=== PATIENT | female | born 1955 | race Caucasian/White ===

== ENCOUNTER → 2017-01-17 | Outpatient (CLI) | payer BC ==
--- NOTE | 2017-01-17 11:37 | US ---
EXAMINATION TYPE: US abdomen complete DATE OF EXAM: 01/17/2017 10:52 AM COMPARISON: NONE CLINICAL HISTORY: R10.13 Epigastric Painradiating to back x 1 month, Nausea/Vomiting. EXAM MEASUREMENTS: Liver Length: 14.6 cm Gallbladder Wall: 0.2 cm CBD: 0.3 cm Spleen: 9.5 cm Right Kidney: 11.5 x4.2 x 3.8 cm Left Kidney: 10.5 x 5.4 x 5.3 cm TECHNOLOGIST IMPRESSION: Pancreas: Obscured by bowel gas Liver: Obscured by overlying bowel gas. Visualized portions wnl Gallbladder: wnl Evidence for sonographic Dinero's sign: no CBD: wnl Spleen: wnl Right Kidney: wnl Left Kidney: wnl Upper IVC: wnl Abd Aorta: wnl The visualized liver is heterogeneous. Portions of liver are obscured by shadowing from bowel gas an d ribs. The intrahepatic portion of the IVC and visualized abdominal aorta are within normal limits. There is no evidence of cholelithiasis. Common bile duct is unremarkable. Pancreas is obscured by o verlying bowel gas on images saved. The visualized spleen is unremarkable though portions are secure d by overlying shadowing from ribs. Kidneys are symmetric and free of hydronephrosis. No renal lesi ons are seen. IMPRESSION: Suboptimal study without significant acute finding seen to account for patient's symptom s.
== END | disposition home or self-care (01) ==
LOC: RADUSWWP 10:15
PROVIDERS: ATTEND Family Medicine
DX: R10.13 Epigastric pain (principal)
CPT/HCPCS: 76700

== ENCOUNTER → 2018-12-04 | Outpatient (CLI) | payer BC ==
--- NOTE | 2018-12-05 07:16 | US ---
EXAMINATION TYPE: US kidneys/renal and bladder DATE OF EXAM: 12/04/2018 COMPARISON: US CLINICAL HISTORY: R10.9 Right Flank Pain. History of renal stones EXAM MEASUREMENTS: Right Kidney: 10.1 x 4.0 x 4.3 cm Left Kidney: 10.4 x 5.5 x 5.6 cm Right Kidney: 0.5 x 0.4 cm echogenic focus, probable stone, no discrete shadowing. No hydronephrosis. Left Kidney: No hydronephrosis or masses seen Bladder: wnl Bilateral Jets seen: Yes There is no evidence for hydronephrosis at this point in time. No nephrolithiasis is seen on the lef t. No masses are identified. The urinary bladder is anechoic. Bilateral ureteral jets are seen. IMPRESSION: Solitary nonobstructing probable 5 mm right renal calculus. No hydronephrosis or left-sided renal miladys culus.
== END | disposition home or self-care (01) ==
LOC: RADUSWWP 16:02
PROVIDERS: ATTEND Family Medicine
DX: R10.9 Unspecified abdominal pain (principal)
CPT/HCPCS: 76770

== ENCOUNTER → 2019-05-12 | Outpatient (CLI) | payer BC, MEDICARE ==
[2019-05-12 10:12] VITALS: BP 115/79; PULSE 92; RESP 16; TEMP 98.3; BMI 26.1
--- NOTE | 2019-05-12 11:00 | P.HPOB ---
History of Present Illness H&P Date: 05/12/19 Chief Complaint: The patient is here for her routine gynecologic exam. This is a 63-year-old with an LMP of 1989. The patient is here to establish with this office. She is status post SHARRI BSO for uterine fibroids. The patient states she has noticed some bladder issues that have become worse over the past 6 months. She states she avoids about 4 to 5 times per day, but at times will develop urinary urgency that can lead to leakage if she does not get to the bathroom in time. She gets up to avoid about 2 times per night. Her last pelvic exam was about 15 years ago. Review of Systems The patient's weight has been stable over the last year. She denies respiratory, cardiac, or G.I. problems. Past Medical History Past Medical History: Diabetes Mellitus, Hyperlipidemia Additional Past Medical History / Comment(s): Type II diabetes, kidney stone. 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 She used ERT for 2 years after her hysterectomy for fibroids. History of Any Multi-Drug Resistant Organisms: None Reported Past Surgical History: Bariatric Surgery Additional Past Surgical History / Comment(s): Lap band surgery 2005. SHARRI BSO 1989. Past Psychological History: No Psychological Hx Reported Smoking Status: Former smoker Additional History: Quit smoking in the . She's been since 1975. 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 - Past Family History Mother Family Medical History: Congestive Heart Failure (CHF), Diabetes Mellitus Brother(s) Family Medical History: Diabetes Mellitus Medications and Allergies Home Medications Medication Instructions Recorded Confirmed Type Atorvastatin [Lipitor] 40 mg PO DAILY 05/12/19 05/12/19 History Glimepiride [Amaryl] 1 mg PO DAILY 05/12/19 05/12/19 History Hydrochlorothiazide [Hydrodiuril] 25 mg PO DAILY 05/12/19 05/12/19 History Lisinopril [Zestril] 2.5 mg PO DAILY 05/12/19 05/12/19 History metFORMIN HCL 1,000 mg PO BID 05/12/19 05/12/19 History Allergies Allergy/AdvReac Type Severity Reaction Status Date / Time No Known Allergies Allergy Unverified 05/12/19 09:53 Exam Vital Signs Temp Pulse Resp BP Pulse Ox 05/12/19 10:08 98.3 F 92 16 115/79 96 Intake and Output 05/11/19 05/12/19 05/12/19 22:59 06:59 14:59 Other: Weight 78.018 kg Height 5'8", weight 172 pounds, BMI 26.2. This is a well-developed well-nourished white female who is alert and oriented times 3 in no acute distress. HEENT: Within normal limits. NECK: Supple without mass or thyromegaly. CHEST AND LUNGS: Clear to auscultation. HEART: Regular rate and rhythm. BREASTS: Are without mass or discharge. AXILLARY EXAM: Negative for adenopathy. BACK: Negative for CVA tenderness. ABDOMEN: Soft, nontender, without palpable masses. PELVIC EXAM: External genitalia appears normal with mild atrophy. Vagina appears normal is mild atrophy. There is no evidence of prolapse. There is minimal urethral mobility with cough and Valsalva. No urinary leakage was demonstrated. Bimanual examination is negative for mass or tenderness. RECTAL EXAM: Rectovaginal exam is negative for mass or tenderness and is negative for occult blood. There is good sphincter tone. EXTREMITIES: Nontender. IMPRESSION: 1. 63-year-old menopausal female status post SHARRI BSO for benign reasons, with normal gynecologic exam. 2. Mild urge incontinence without any significant physical findings at this time. PLAN: 1. Pap smears have been discontinued. 2. Self breast awareness was discussed with the patient. 3. Screening mammogram is scheduled for 06/04/2019 per the patient. The orders that was given to the patient for this. 4. I have recommended regular Kegal exercises and timed voids. These were discussed in detail with the patient. If she continues to have problems with urge incontinence, she was instructed to call and we can consider medication for this. 5. Osteoporosis prevention was discussed. I have stressed the importance of adequate calcium, vitamin D and regular exercise. Recommended amounts of calcium and vitamin D were also discussed. The patient states she had a normal bone density test done in 2018 at [facility]. We will plan repeating this after 5 years. 6. She will return in one to 2 years for her well woman examination.
== END | disposition home or self-care (01) ==
LOC: WWCWWP 09:39
PROVIDERS: ATTEND Obstetrics & Gynecology
DX: Z53.9 Procedure and treatment not carried out, unspecified reason (principal)

== ENCOUNTER → 2019-06-04 | Outpatient (CLI) | payer BC, MEDICARE ==
--- NOTE | 2019-06-09 13:57 | MM ---
Reason for exam: screening (asymptomatic). Last mammogram was performed 1 year and 4 months ago. History: Patient is postmenopausal. Family history of breast cancer in aunt at age 47 and breast cancer in maternal aunt. Took hormonal contraceptives for 3 years. Took estrogen for 5 years. Took progesterone for 5 years. Physical Findings: A clinical breast exam by your physician is recommended on an annual basis and results should be correlated with mammographic findings. MG 3D Screening Mammo W/Cad Bilateral CC and MLO view(s) were taken. Prior study comparison: January 21, 2018, mammogram, performed at [facility]. February 28, 2015, bilateral MG screening mammo w CAD. May 19, 2013, bilateral digital screening mammo w/CAD. There are scattered fibroglandular densities. There are four right superior breast posterior depth rounded calcifications. These do not meet criteria for a true group at this time. No suspicious abnormality. ASSESSMENT: Benign, BI-RAD 2 RECOMMENDATION: Routine screening mammogram of both breasts in 1 year.
== END ==
LOC: RADMAMWWP 07:07
PROVIDERS: ATTEND Obstetrics & Gynecology
DX: Z12.31 Encounter for screening mammogram for malignant neoplasm of breast (principal)
CPT/HCPCS: 77063; 77067

== ENCOUNTER 2019-07-22 06:43 | Day surgery (SDC) | payer MEDICARE ==
[~2019-07-22 06:43] MED LIST: LACTATED RINGERS 1,000 ML IV SCH; LIDOCAINE 1% 20 ML VIAL (10MG/ML) FOR IV START INTRADERMA PRN
[2019-07-22 07:27] LABS: Glucose,Whole Blood 121 mg/dL (75-99)
[2019-07-22 07:30] VITALS: RESP 16; TEMP 97.6
[2019-07-22] MEDS ORDERED: PROPOFOL 10 MG/ML 20 ML VIAL IV ONE (08:06)
--- NOTE | 2019-07-22 08:09 | P.GSHP ---
History of Present Illness H&P Date: 07/22/19 CHIEF COMPLAINT: Colon screen HISTORY OF PRESENT ILLNESS: The patient is a 64-year-old female who presents for colon screen. Lower endoscopy was offered for further evaluation and management. PAST MEDICAL HISTORY: Please see list. PAST SURGICAL HISTORY: Please see list. MEDICATIONS: Please see list. ALLERGIES: Please see list. SOCIAL HISTORY: No illicit drug use FAMILY HISTORY: No reports of Crohn disease or ulcerative colitis. REVIEW OF ORGAN SYSTEMS: CONSTITUTIONAL: No reports of fevers or chills. PHYSICAL EXAM: VITAL SIGNS: Stable GENERAL: Well-developed pleasant in no acute distress. HEENT: No scleral icterus. Extraocular movements grossly intact. Moist buccal mucosa. NECK: Supple without lymphadenopathy. CHEST: Unlabored respirations. Equal bilateral excursions. CARDIOVASCULAR: Regular rate and rhythm. Distal 2+ pulses. ABDOMEN: Soft, nontender, nondistended. MUSCULOSKELETAL: No clubbing, cyanosis, or edema. ASSESSMENT: 1. Colon screen. PLAN: 1. Recommend proceeding with a lower endoscopy Past Medical History Past Medical History: Diabetes Mellitus, Hyperlipidemia Additional Past Medical History / Comment(s): Type II diabetes, kidney stone. TAKES HCTZ TO MAINTAIN KIDNEY FUNCTION, SINCE SHE IS TAKING DIABETIC MEDS.. 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 History of Any Multi-Drug Resistant Organisms: None Reported Past Surgical History: Bariatric Surgery, Hysterectomy Additional Past Surgical History / Comment(s): Lap band surgery 2005. SHARRI BSO 1989. BILATERAL ROTATOR CUFF. Past Anesthesia/Blood Transfusion Reactions: No Reported Reaction Past Psychological History: No Psychological Hx Reported Smoking Status: Former smoker Past Alcohol Use History: None Reported Additional Past Alcohol Use History / Comment(s): QUIT SMOKING THE , LESS THAN A PACK. Past Drug Use History: None Reported - Past Family History Mother Family Medical History: Congestive Heart Failure (CHF), Diabetes Mellitus Brother(s) Family Medical History: Diabetes Mellitus Medications and Allergies Home Medications Medication Instructions Recorded Confirmed Type Atorvastatin [Lipitor] 40 mg PO QAM 05/12/19 07/22/19 History Glimepiride [Amaryl] 1 mg PO QAM 05/12/19 07/22/19 History Hydrochlorothiazide [Hydrodiuril] 25 mg PO QAM 05/12/19 07/22/19 History Lisinopril [Zestril] 2.5 mg PO QAM 05/12/19 07/22/19 History metFORMIN HCL 1,000 mg PO BID 05/12/19 07/22/19 History Allergies Allergy/AdvReac Type Severity Reaction Status Date / Time No Known Allergies Allergy Unverified 07/22/19 07:11 Surgical - Exam Vital Signs Temp Pulse Resp BP Pulse Ox 97.6 F 73 16 113/64 98 07/22/19 07:20 07/22/19 07:20 07/22/19 07:20 07/22/19 07:20 07/22/19 07:20 Results - Labs Abnormal Lab Results - Last 24 Hours (Table) 07/22/19 Range/Units 07:22 POC Glucose (mg/dL) 121 H (75-99) mg/dL
--- NOTE | 2019-07-22 08:27 | P.PCN ---
Date of Procedure: 07/22/19 Description of Procedure: PREOPERATIVE DIAGNOSIS: Colonoscopy screening, low risk POSTOPERATIVE DIAGNOSIS: Colonoscopy screening, low risk OPERATION: Colonoscopy to the ileocecal valve and appendiceal orifice. SURGEON: Mally Baitsta MD. ANESTHESIA: MAC. INDICATIONS: The patient is a 64-year-old female who presents for colonoscopy screening. Last colonoscopy 10 years ago. Benefits and risks were described and informed consent was obtained. DESCRIPTION OF PROCEDURE: The patient had undergone Suprep. She had been brought into the operating room and laid in the left lateral decubitus position. After adequate intravenous sedation, the rectum was examined with 2% lidocaine jelly. No external hemorrhoids were encountered. The rectal tone was within normal limits. No lesions were palpated in the rectal vault. An Olympus colonoscope was advanced until the ileocecal valve and appendiceal orifice were clearly viewed. The prep was fair with a semi-solid residual stool. The scope was removed with visualization of each mucosal fold. No scattered diverticulosis was encountered. No large colonic polyps were found. No evidence of focal colitis was found. Retroflexion of the scope demonstrated grade 1 internal hemorrhoids without active bleeding or inflammation. The colon was desufflated. The patient had tolerated the procedure well. Withdrawal time was over 6 minutes. FINDINGS: Aronchick preparation quality scale 3 (1-5) Internal hemorrhoids, grade 1 No external prolapsed hemorrhoids. No arteriovenous malformations. No adenomatous polyps. No focal colitis. RECOMMENDATIONS: Lower endoscopy in 10 years, 2028 Plan - Discharge Summary Discharge Rx Participant: No New Discharge Prescriptions: No Action Lisinopril [Zestril] 2.5 mg PO QAM metFORMIN HCL 1,000 mg PO BID Hydrochlorothiazide [Hydrodiuril] 25 mg PO QAM Glimepiride [Amaryl] 1 mg PO QAM Atorvastatin [Lipitor] 40 mg PO QAM Discharge Medication List Atorvastatin [Lipitor] 40 mg PO QAM 05/12/19 [History] Glimepiride [Amaryl] 1 mg PO QAM 05/12/19 [History] Hydrochlorothiazide [Hydrodiuril] 25 mg PO QAM 05/12/19 [History] Lisinopril [Zestril] 2.5 mg PO QAM 05/12/19 [History] metFORMIN HCL 1,000 mg PO BID 05/12/19 [History] Follow up Appointment(s)/Referral(s): Mally Batista MD [STAFF PHYSICIAN] - As Needed Patient Instructions/Handouts: *Surgery [facility] - (Anesthesia) Endoscopy Discharge Instructions Activity/Diet/Wound Care/Special Instructions: Repeat colonoscopy in 10 years, 2028, may use Cologaurd Discharge Disposition: HOME SELF-CARE
[2019-07-22 09:02] VITALS: BP 123/67; PULSE 65
== END 2019-07-22 09:02 | disposition home or self-care (01) ==
LOC: ORWHC2ENDO 06:43
PROVIDERS: ATTEND Surgery Plastic and Reconstructive Surgery
DX: Z12.11 Encounter for screening for malignant neoplasm of colon (principal); K64.8 Other hemorrhoids; E11.9 Type 2 diabetes mellitus without complications; E78.5 Hyperlipidemia, unspecified; Z79.84 Long term (current) use of oral hypoglycemic drugs; Z82.49 Family history of ischemic heart disease and other diseases of the circulatory system; Z83.3 Family history of diabetes mellitus; Z87.442 Personal history of urinary calculi; Z87.891 Personal history of nicotine dependence; I10 Essential (primary) hypertension; Z79.899 Other long term (current) drug therapy; Z98.84 Bariatric surgery status
CPT/HCPCS: J2704; G0121

== ENCOUNTER 2019-09-23 04:05 | Observation (INO) | payer MEDICARE ==
[2019-09-23] MEDS ORDERED: MECLIZINE 12.5 MG TAB PO STA (04:37)
[2019-09-23] MEDS ORDERED: SODIUM CHLORIDE 0.9% 1,000 ML IV ONE (04:37)
--- NOTE | 2019-09-23 04:44 | ED ---
Dizziness HPI - General Chief Complaint: Dizziness Stated Complaint: Dizziness Time Seen by Provider: 09/23/19 04:12 Source: patient Mode of arrival: wheelchair Limitations: no limitations - History of Present Illness Initial Comments: Maria Antonia previously healthy 64-year-old female presents to the emergency department today for evaluation of dizziness. Patient reports she woke this morning when she got up to walk to the restroom she felt like the room was spinning around her and she was going to lose her balance which made her feel somewhat motion sick. Patient never experienced anything like this in the past. She's not had any recent illness, URI like symptoms. Chills nausea or vomiting. She denies any other symptoms. Denies headache, vision changes, slurred each, trouble speaking or swallowing. She denies any focal weaknesses. - Related Data Home Medications Medication Instructions Recorded Confirmed Atorvastatin [Lipitor] 40 mg PO QAM 05/12/19 09/23/19 Glimepiride [Amaryl] 1 mg PO QAM 05/12/19 09/23/19 Hydrochlorothiazide [Hydrodiuril] 25 mg PO QAM 05/12/19 09/23/19 Lisinopril [Zestril] 2.5 mg PO QAM 05/12/19 09/23/19 metFORMIN HCL 1,000 mg PO BID 05/12/19 09/23/19 Allergies Allergy/AdvReac Type Severity Reaction Status Date / Time No Known Allergies Allergy Unverified 07/22/19 07:11 Review of Systems ROS Statement: Those systems with pertinent positive or pertinent negative responses have been documented in the HPI. ROS Other: All systems not noted in ROS Statement are negative. Past Medical History Past Medical History: Diabetes Mellitus, Hyperlipidemia Additional Past Medical History / Comment(s): Type II diabetes, kidney stone. TAKES HCTZ TO MAINTAIN KIDNEY FUNCTION, SINCE SHE IS TAKING DIABETIC MEDS.. 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 History of Any Multi-Drug Resistant Organisms: None Reported Past Surgical History: Bariatric Surgery, Hysterectomy Additional Past Surgical History / Comment(s): Lap band surgery 2005. SHARRI BSO 1989. BILATERAL ROTATOR CUFF. Past Anesthesia/Blood Transfusion Reactions: No Reported Reaction Past Psychological History: No Psychological Hx Reported Smoking Status: Former smoker Past Alcohol Use History: None Reported Past Drug Use History: None Reported - Past Family History Mother Family Medical History: Congestive Heart Failure (CHF), Diabetes Mellitus Brother(s) Family Medical History: Diabetes Mellitus General Exam - General Exam Comments Initial Comments: Physical Exam GENERAL: Patient is well-developed and well-nourished. Patient is nontoxic and well- hydrated and is in no distress. HENT: Normocephalic, Atraumatic. EYES: PERRL, EOMI PULMONARY: Unlabored respirations. No audible rales rhonchi or wheezing was noted. CARDIOVASCULAR: There is a regular rate and rhythm without any murmurs gallops or rubs. ABDOMEN: Soft and nontender with normal bowel sounds. SKIN: Skin is clear with no lesions or rashes and otherwise unremarkable. : Deferred NEUROLOGIC: Patient is alert and oriented x3. Cranial nerves II through XII are grossly intact Normal strength in bilateral upper and lower extremities Normal finger-nose and heel chase testing No ataxia Horizontal nystagmus noted upon turning head to the left MUSCULOSKELETAL: Normal extremities with adequate strength and full range of motion. No lower extremity swelling or edema. No calf tenderness. PSYCHIATRIC: Normal psychiatric evaluation. Limitations: no limitations Course Vital Signs 09/23/19 09/23/19 04:14 06:52 Temperature 98.0 F Pulse Rate 68 60 Respiratory 20 18 Rate Blood Pressure 116/62 120/74 O2 Sat by Pulse 99 100 Oximetry - Reevaluation(s) Reevaluation #1: She was reevaluated after Antivert, IV fluids infusing. Patient reports she was feeling much better attempted to get up to go the restroom and feels very dizzy again. At this time additional medications and CT imaging were be obtained. 09/23/19 06:18 Reevaluation #2: Patient was reevaluated after Valium. She is able to sit up and thought she could transfer to the CT bed but again became symptomatic. 09/23/19 07:27 EKG Findings - EKG Comments: EKG Findings:: KG was obtained due to complaint of dizziness, EKG obtained at 4:26 AM, rate of 62 rhythm is sinus there is normal axis, normal intervals, DE 186, QR 70, QTC is 424. There are no acute ST elevations or depressions there is no evidence of acute ischemia or infarction. Medical Decision Making - Medical Decision Making Patient was seen and evaluated, history is obtained from patient and sent history and physical exam are concerning for referral vertigo as the patient has reproducible symptoms upon turning her head to the left. No symptoms at rest or with her body not moving. Neuro exam is otherwise unremarkable she has no limb ataxia, normal coordination with finger-nose testing and heel chase testing. Patient has normal speech. Labs, IV fluids and meclizine were ordered was reevaluated after meclizine and again after Valium. She remains persistently vertiginous. A CT was ordered and resulted with no acute findings. Patient care was discussed her primary care physician Dr. Martins who agrees with plan for admission for intractable vertigo with a consult to neurology for further evaluation. - Lab Data Result diagrams: 09/23/19 04:40 09/23/19 04:40 Lab Results 09/23/19 09/23/19 Range/Units 04:40 04:40 WBC 8.0 (3.8-10.6) k/uL RBC 4.40 (3.80-5.40) m/uL Hgb 11.4 (11.4-16.0) gm/dL Hct 35.7 (34.0-46.0) % MCV 81.1 (80.0-100.0) fL MCH 26.0 (25.0-35.0) pg MCHC 32.0 (31.0-37.0) g/dL RDW 14.3 (11.5-15.5) % Plt Count 412 (150-450) k/uL Neutrophils % 71 % Lymphocytes % 19 % Monocytes % 5 % Eosinophils % 4 % Basophils % 1 % Neutrophils # 5.7 (1.3-7.7) k/uL Lymphocytes # 1.5 (1.0-4.8) k/uL Monocytes # 0.4 (0-1.0) k/uL Eosinophils # 0.3 (0-0.7) k/uL Basophils # 0.1 (0-0.2) k/uL Sodium 139 (137-145) mmol/L Potassium 4.0 (3.5-5.1) mmol/L Chloride 108 H (98-107) mmol/L Carbon Dioxide 22 (22-30) mmol/L Anion Gap 9 mmol/L BUN 13 (7-17) mg/dL Creatinine 0.65 (0.52-1.04) mg/dL Est GFR (CKD-EPI)AfAm >90 (>60 ml/min/1.73 sqM) Est GFR (CKD-EPI)NonAf >90 (>60 ml/min/1.73 sqM) Glucose 129 H (74-99) mg/dL Calcium 9.5 (8.4-10.2) mg/dL Magnesium 1.8 (1.6-2.3) mg/dL Total Bilirubin 0.5 (0.2-1.3) mg/dL AST 20 (14-36) U/L ALT 27 (9-52) U/L Alkaline Phosphatase 79 (38-126) U/L Total Protein 6.0 L (6.3-8.2) g/dL Albumin 3.8 (3.5-5.0) g/dL Disposition Clinical Impression: Vertigo Disposition: ADMITTED IP TO THIS HOSP Condition: Stable Referrals: Lobo aMrtins MD [Primary Care Provider] - 1-2 days
[2019-09-23 04:56] LABS: Basophils # (A) 0.1 k/uL (0-0.2); Basophils % (A) 1 %; Eosinophils # (A) 0.3 k/uL (0-0.7); Eosinophils % (A) 4 %; HCT 35.7 % (34.0-46.0); HGB 11.4 gm/dL (11.4-16.0); Lymphocytes # (A) 1.5 k/uL (1.0-4.8); Lymphocytes % (A) 19 %; MCV 81.1 fL (80.0-100.0); Mean Platelet Volume 5.8; Monocytes # (A) 0.4 k/uL (0-1.0); Monocytes % (A) 5 %; Neutrophils # (A) 5.7 k/uL (1.3-7.7); Neutrophils % (A) 71 %; Platelet Count 412 k/uL (150-450); RDW 14.3 % (11.5-15.5)
[2019-09-23 05:17] LABS: ALT 27 U/L (9-52); AST 20 U/L (14-36); African American GFR (CKD) >90 (>60 ml/min/1.73 sqM); Albumin 3.8 g/dL (3.5-5.0); Alkaline Phosphatase 79 U/L (38-126); Anion Gap 9 mmol/L; Blood Urea Nitrogen 13 mg/dL (7-17); Calcium 9.5 mg/dL (8.4-10.2); Carbon Dioxide 22 mmol/L (22-30); Chloride 108 mmol/L (98-107); Glucose 129 mg/dL (74-99); Magnesium 1.8 mg/dL (1.6-2.3); Non-African American GFR(CKD) >90 (>60 ml/min/1.73 sqM); Sodium 139 mmol/L (137-145); Total Bilirubin 0.5 mg/dL (0.2-1.3)
[2019-09-23] MEDS ORDERED: DIAZEPAM 5 MG/ML 2 ML INJ IVP STA (06:17)
--- NOTE | 2019-09-23 07:22 | CT ---
EXAMINATION TYPE: CT angio head neck DATE OF EXAM: 09/23/2019 HISTORY: vertigo COMPARISON: NONE CT DLP: 1484.6 mGycm. Automated Exposure Control for Dose Reduction was Utilized. TECHNIQUE: CTA scan of the head and neck are performed with IV Contrast, patient injected with 65 mL of Isovue 370, axial images are obtained, coronal and sagittal reformatted images are reviewed. Thre e-D reconstructed images are created on an independent workstation and reviewed. Noncontrast head CT is also performed. FINDINGS: Carotid/Vascular Structures: Bovine type arch which is aortic. There is present. There is no signific ant plaque or stenosis in common or internal carotid arteries bilaterally including a level carotid b ulbs. There are patent external carotid arteries without significant plaque or stenosis. There are codominant vertebral arteries patent to basilar junction. There is gradual diminished diame ter to the distal vertebral artery which becomes nonvisualized or stenotic distally. There is filling of the posterior cerebral arteries due to patent bilateral posterior communicating arteries. Anterio r circulation shows patent anterior communicating artery image 17 series 505. No significant focal st enosis or aneurysmal change is seen. Other: Noncontrast head CT shows no acute intracranial hemorrhage or midline shift. Mild age-related cerebral atrophy. Huffman-white matter differentiation is maintained. Visualized sinuses are clear and g lobes are intact. Mild to moderate spurring and disc space narrowing C5-C6 and C6-C7 levels. IMPRESSION: 1. No significant stenosis in common or internal carotid arteries bilaterally. 2. No aneurysmal change at level of mechoopda of [place]. Small caliber mid to distal vertebral artery wh ich is nonvisualized suspected stenotic. Filling of posterior cerebral arteries from collateral vesse ls at level of mechoopda of [place]. Suspect this is a normal variant.
[2019-09-23] MEDS ORDERED: NALOXONE 0.4 MG/ML 1 ML VIAL IV PRN (07:26)
[2019-09-23] MEDS: GLIMEPIRIDE 1 MG TAB PO SCH (10:10)
[2019-09-23] MEDS: LISINOPRIL 2.5 MG TAB PO SCH (10:10)
[2019-09-23] MEDS: ATORVASTATIN 40 MG TAB PO SCH (10:10)
[2019-09-23] MEDS: HYDROCHLOROTHIAZIDE 25 MG TAB PO SCH (10:10)
[2019-09-23] MEDS: metFORMIN 500 MG TAB PO SCH ×2 (10:13→17:44)
--- NOTE | 2019-09-23 10:53 | P.HPIM ---
History of Present Illness 64-year-old female presented to the emergency room with complaints of the severe dizziness with nausea and imbalance. This came under the patient suddenly. Patient is on diabetes type 2 states her blood sugar at the time is 110 patient does have a history of bariatric surgery Review of Systems Constitutional: Reports weakness Neurological: Reports balance difficulties, Reports vertigo Past Medical History Past Medical History: Diabetes Mellitus, Hyperlipidemia, Renal Disease Additional Past Medical History / Comment(s): NIDDM type II, pt takes HCTZ/zestril to protect her kidneys from diabetic medication, thyroiditis when first diagnosed with diabetes, UTIs, kidney stones, constipation. History of Any Multi-Drug Resistant Organisms: None Reported Past Surgical History: Bariatric Surgery, Hysterectomy, Orthopedic Surgery, Tubal Ligation Additional Past Surgical History / Comment(s): 2005 Lap band, SHARRI/BSO, cystosc opy for kidney stone removal, bilateral rotator cuff repairs, colonoscopies. Past Anesthesia/Blood Transfusion Reactions: No Reported Reaction Smoking Status: Former smoker - Past Family History Mother Family Medical History: Congestive Heart Failure (CHF), Diabetes Mellitus Additional Family Medical History / Comment(s): Mother from CHF Brother(s) Family Medical History: Diabetes Mellitus Father Family Medical History: CVA/TIA Additional Family Medical History / Comment(s): Father of a CVA Medications and Allergies Home Medications Medication Instructions Recorded Confirmed Type Atorvastatin [Lipitor] 40 mg PO QAM 05/12/19 09/23/19 History Glimepiride [Amaryl] 1 mg PO QAM 05/12/19 09/23/19 History Hydrochlorothiazide [Hydrodiuril] 25 mg PO QAM 05/12/19 09/23/19 History Lisinopril [Zestril] 2.5 mg PO QAM 05/12/19 09/23/19 History metFORMIN HCL 1,000 mg PO BID 05/12/19 09/23/19 History Allergies Allergy/AdvReac Type Severity Reaction Status Date / Time No Known Allergies Allergy Verified 09/23/19 08:02 Physical Exam Vitals: Vital Signs Temp Pulse Pulse Resp BP BP Pulse Ox 09/23/19 08:12 98.0 F 64 18 129/78 98 09/23/19 06:52 60 18 120/74 100 09/23/19 04:14 98.0 F 68 20 116/62 99 Intake and Output 09/22/19 09/23/19 09/23/19 22:59 06:59 14:59 Other: Weight 80.739 kg 80.739 kg - Constitutional General appearance: mild distress - EENT Eyes: PERRLA Ears: bilateral: normal - Neck Neck: normal ROM - Respiratory Respiratory: bilateral: CTA - Cardiovascular Rhythm: regular - Gastrointestinal General gastrointestinal: soft - Integumentary Integumentary: normal - Neurologic Neurologic: CNII-XII intact - Musculoskeletal Musculoskeletal: generalized weakness - Psychiatric Psychiatric: A&O x's 3, appropriate affect, intact judgment & insight Results CBC & Chem 7: 09/23/19 04:40 09/23/19 04:40 Labs: Abnormal Lab Results - Last 24 Hours (Table) 09/23/19 Range/Units 04:40 Chloride 108 H (98-107) mmol/L Glucose 129 H (74-99) mg/dL Total Protein 6.0 L (6.3-8.2) g/dL CT Scan - head: report reviewed Thrombosis Risk Factor Assmnt - Choose All That Apply Any of the Below Risk Factors Present?: Yes Each Factor Represents 1 point: Obesity (BMI >25) Other Risk Factors: Yes Each Risk Factor Represents 2 Points: Age 61-74 years Other congenital or acquired thrombophilia - If yes, enter type in comment: No Thrombosis Risk Factor Assessment Total Risk Factor Score: 3 Thrombosis Risk Factor Assessment Level: Moderate Risk Assessment and Plan Plan: Assessment Acute onset of vertigo History of diabetes type 2 Hyperlipidemia History of bariatric surgery Plan Neurology evaluation
[2019-09-23 11:35] LABS: Glucose,Whole Blood 105 mg/dL (75-99)
--- NOTE | 2019-09-23 13:33 | P.CNNES ---
History of Present Illness Consult date: 09/23/19 Reason for Consult: Vertigo Chief complaint: Dizziness History of Present Illness: HISTORY OF PRESENT ILLNESS: Thank you for allowing me to evaluate Ms. Maria Antonia Mo. Ms. Mo is a 64-year-old woman with past medical history of diabetes, hyperlipidemia, hypertension, who presents to [facility] for acute onset dizziness. Patient states that she got up in the middle the night when she galdamez ddenly had acute dizziness. Patient does not endorse a room spinning sensation, but she states that he felt the room was swinging back and forth. At this time, patient states that she doesn't have the dizziness when she is lying flat in her bed, but when she moves, she started having the dizziness again. He denies ever having similar symptoms before. Denies any headache, nausea, vomiting, weak ness, numbness, tingling, double/blurry vision, recent sickness, fevers, tinnitus, ear pain, chest pain, shortness of breath. Patient stated she was given a medication for vertigo in the emergency room this morning, but she doesn't feel that it helped her with her symptoms. PAST MEDICAL HISTORY: diabetes, hyperlipidemia, hypertension PAST SURGICAL HISTORY: Hysterectomy, bariatric surgery in 2005, bilateral rotator cuff surgery HOME MEDICATIONS: Atorvastatin, glimepiride, hydrochlorothiazide, lisinopril, metformin ALLERGIES: NKDA SOCIAL HISTORY: Former smoker. FAMILY HISTORY: Mother with CHF, diabetes. Brother with diabetes REVIEW OF SYSTEMS: The 14 systems are reviewed and no additional points are identified compared to the review of systems documented history and physical PHYSICAL EXAMINATION: VITAL SIGNS: T 98.0 HR 64 RR 18 BP 129/78 O2 sat 98% on RA GEN.: NAD, pleasant and cooperative HEENT: NCAT, sclera without icterus NECK: Supple SKIN AND EXTREMITIES: Warm to touch, no edema NEURO: MENTAL STATUS: Patient alert and oriented to self, place, time. Able to name the current president. Speech fluent, able to name and repeat, following all commands readily. No right and left disorientation, extinction to double simultaneous stimulation, finger agnosia, neglect. CRANIAL NERVES II THROUGH XII: II: Pupils are equal and reactive to light symmetrically. No afferent pupillary defect. Visual huston are intact. III, IV, : No ptosis. Extraocular movements full. No nystagmus. V: Facial sensation intact from V1-3. VII. No clear facial asymmetry. VIII: Hearing intact to finger rub bilaterally. IX, X: Symmetric palate elevation. XI: Shoulder shrug intact. XII: Tongue midline without fasciculation or atrophy. MOTOR: Normal bulk/tone. No pronator drift or tremor. Strength is 5/5 throughout all 4 extremities. SENSORY: Intact to light touch, temperature, pinprick in all 4 extremities. Romberg is negative. REFLEXES: 2+ throughout. Toes are downgoing. No clonus. Evan's is absent COORDINATION: Finger to nose and heel to chase intact. No dysmetria. Rapid alternating movements with good speed and accuracy. GAIT: Narrow-based and stable. Able to toe/heel/tandem walk HINTS: negative PHYLLIS-Hallpike: negative DIAGNOSTIC TESTING: LABORATORY: WBC 8.0 hemoglobin 11.4 platelet for 12 sodium 139 potassium 4.0 chloride 108 bicarb 22 BUN 13 creatinine 0.65 glucose 129 AST 20 ALT 27 alk phos 79 IMAGING: CT angiography head and neck with and without contrast 09/23/2019: No significant stenosis and common or internal carotid arteries bilaterally. No aneurysmal change at level [place]. Small caliber mid to distal vertebral artery which is not visualized suspect a stenotic. The lumen and posterior cerebral arteries from collateral vessels at level of [place]. Suspect this is a normal variant. ASSESSMENT: 64-year-old woman with past medical history of diabetes, hyperlipidemia, hypertension, who presents to [facility] for acute onset dizziness. Patient not specifically endorsing a room-spinning sensation, and her dizziness appears positional, but Phyllis-Hallpike negative and patient with multiple risk factors for stroke. CTA of head and neck also showing possible stenotic vertebral artery, which could be the etiology of her dizziness/vertigo/possible stroke. Recommend admission for stroke work-up and management. RECOMMENDATIONS: 1. MRI brain without contrast 2. Carotid Doppler bilateral 3. Transthoracic echocardiogram 4. Cardiac monitoring 5. Permissive HTN for 24-48 hours SBP >220. Give labetalol 10mg IV q1h PRN for SBP >220 DBP >110 6. ASA 81mg qday and Plavix 75mg qday (dual antiplatelet therapy for 3 weeks per POINT trial, then Aspirin 81mg qday only) 7. Atorvastatin 80mg qhs 8. Labs: A1C, TSH, FLP 9. PT/OT/ST per protocol 10. Will discuss with patient about stroke prevention guidelines. Medication compliance, hypertension/diabetes control, lifestyle changes including no smoking, drinking in moderation, losing weight, exercising, eating healthier 11. Neurology will continue to follow 12. Patient needs to follow up with neurologist as outpatient with her 1-2 weeks of discharge Past Medical History Past Medical History: Diabetes Mellitus, Hyperlipidemia Additional Past Medical History / Comment(s): Type II diabetes, kidney stone. TAKES HCTZ TO MAINTAIN KIDNEY FUNCTION, SINCE SHE IS TAKING DIABETIC MEDS.. PAST PROGRAM DIR HISTORY: hysterectomy for fibroids. History of Any Multi-Drug Resistant Organisms: None Reported Past Surgical History: Bariatric Surgery, Hysterectomy Additional Past Surgical History / Comment(s): Lap band surgery 2005. SHARRI BSO 1989. BILATERAL ROTATOR CUFF. Past Anesthesia/Blood Transfusion Reactions: No Reported Reaction Past Psychological History: No Psychological Hx Reported Smoking Status: Former smoker Past Alcohol Use History: None Reported Past Drug Use History: None Reported - Past Family History Mother Family Medical History: Congestive Heart Failure (CHF), Diabetes Mellitus Brother(s) Family Medical History: Diabetes Mellitus Father Family Medical History: CVA/TIA Additional Family Medical History / Comment(s): Father of a CVA Medications and Allergies Home Medications Medication Instructions Recorded Confirmed Type Atorvastatin [Lipitor] 40 mg PO QAM 05/12/19 09/23/19 History Glimepiride [Amaryl] 1 mg PO QAM 05/12/19 09/23/19 History Hydrochlorothiazide [Hydrodiuril] 25 mg PO QAM 05/12/19 09/23/19 History Lisinopril [Zestril] 2.5 mg PO QAM 05/12/19 09/23/19 History metFORMIN HCL 1,000 mg PO BID 05/12/19 09/23/19 History Allergies Allergy/AdvReac Type Severity Reaction Status Date / Time No Known Allergies Allergy Verified 09/23/19 08:02 Physical Examination - Vital Signs Vital Signs: Vital Signs Temp Pulse Pulse Resp BP BP Pulse Ox 09/23/19 08:12 98.0 F 64 18 129/78 98 09/23/19 06:52 60 18 120/74 100 09/23/19 04:14 98.0 F 68 20 116/62 99 Intake and Output 09/22/19 09/23/19 09/23/19 22:59 06:59 14:59 Other: Weight 80.739 kg Results - Laboratory Findings CBC and BMP: 09/23/19 04:40 09/23/19 04:40 Abnormal Lab Findings: Abnormal Labs 09/23/19 04:40 Chloride 108 H Glucose 129 H Total Protein 6.0 L
[2019-09-23] MEDS: CLOPIDOGREL 75 MG TAB PO SCH (13:45)
[2019-09-23] MEDS: ASPIRIN 81 MG PO SCH (13:45)
--- NOTE | 2019-09-23 16:35 | ECHOF ---
Referral Reason:concern for stroke MEASUREMENTS -------- HEIGHT: 172.7 cm WEIGHT: 80.7 kg BP: RVIDd: 2.4 cm (< 3.3) IVSd: 1.1 cm (0.6 - 1.1) LVIDd: 3.8 cm (3.9 - 5.3) LVPWd: 1.3 cm (0.6 - 1.1) IVSs: 1.1 cm LVIDs: 2.6 cm LVPWs: 1.3 cm LAESV Index (A-L): 16.78 ml/m Ao Diam: 3.0 cm (2.0 - 3.7) AV Cusp: 1.8 cm (1.5 - 2.6) LA Diam: 2.8 cm (2.7 - 3.8) MV EXCURSION: 12.495 mm (> 18.000) MV EF SLOPE: 114 mm/s (70 - 150) EPSS: 0.4 cm MV E Don: 0.93 m/s MV DecT: 171 ms MV A Don: 1.01 m/s MV E/A Ratio: 0.92 RAP: 5.00 mmHg RVSP: 26.67 mmHg TAPSE: 20.48 mm FINDINGS -------- Sinus rhythm. This was a technically adequate study. The left ventricular size is normal. There is mild concentric left ventricular hypertrophy. Overa ll left ventricular systolic function is normal with, an EF between 55 - 60 %. The diastolic fillin g pattern is normal for the age of the patient 10.78. The right ventricle is normal in size. The right ventricular systolic function is normal. The left atrial size is normal. Normal LA size by volume 22+/-6 ml/m2. The right atrial size is normal. Interatrial and interventricular septum intact. The aortic valve is trileaflet and appears structurally normal. The mitral valve is normal. There is trace mitral regurgitation. The tricuspid valve appears structurally normal. Mild tricuspid regurgitation present. Right vent ricular systolic pressure is normal at < 35 mmHg. There is no pulmonic regurgitation present. The aortic root size is normal. IVC Not well visulized. There is a small, generalized pericardial effusion present. CONCLUSIONS -------- 1. Sinus rhythm. 2. This was a technically adequate study. 3. The left ventricular size is normal. 4. There is mild concentric left ventricular hypertrophy. 5. Overall left ventricular systolic function is normal with, an EF between 55 - 60 %. 6. The diastolic filling pattern is normal for the age of the patient 10.78 7. The right ventricle is normal in size. 8. The right ventricular systolic function is normal. 9. The left atrial size is normal. 10. Normal LA size by volume 22+/-6 ml/m2. 11. The right atrial size is normal. 12. Interatrial and interventricular septum intact. 13. The aortic valve is trileaflet and appears structurally normal. 14. The mitral valve is normal. 15. There is trace mitral regurgitation. 16. The tricuspid valve appears structurally normal. 17. Mild tricuspid regurgitation present. 18. Right ventricular systolic pressure is normal at < 35 mmHg. 19. There is no pulmonic regurgitation present. 20. The aortic root size is normal. 21. IVC Not well visulized. 22. There is a small, generalized pericardial effusion present. ACOUSTIC ENGINEER: Tracee Martínez RDCS
[2019-09-23 17:12] LABS: Glucose,Whole Blood 89 mg/dL (75-99)
[2019-09-23 21:09] LABS: Glucose,Whole Blood 104 mg/dL (75-99)
[2019-09-24 06:18] LABS: Glucose,Whole Blood 115 mg/dL (75-99)
[2019-09-24] MEDS: INSULIN ASPART (NovoLOG) 100 UNIT/ML VIAL SQ SCH ×4 (06:21→21:31)
[2019-09-24] MEDS: metFORMIN 500 MG TAB PO SCH ×2 (06:25→18:01)
[2019-09-24] MEDS: HYDROCHLOROTHIAZIDE 25 MG TAB PO SCH (08:35)
[2019-09-24] MEDS: CLOPIDOGREL 75 MG TAB PO SCH (08:35)
[2019-09-24] MEDS: LISINOPRIL 2.5 MG TAB PO SCH (08:35)
[2019-09-24] MEDS: ASPIRIN 81 MG PO SCH (08:35)
[2019-09-24] MEDS: ATORVASTATIN 40 MG TAB PO SCH (08:35)
[2019-09-24] MEDS: GLIMEPIRIDE 1 MG TAB PO SCH (08:36)
[2019-09-24] MEDS: ACETAMINOPHEN TAB 325 MG TAB PO PRN ×3 (08:36→21:39)
[2019-09-24 12:18] LABS: Glucose,Whole Blood 104 mg/dL (75-99)
--- NOTE | 2019-09-24 12:52 | P.PN ---
Subjective 59-year-old female was admitted the with vertigo and neurology is recommending an MRI of the brain because of the concerns of cerebellar stroke.Patient's vertiginous symptoms improved and patient is more stable today and ablating well. Without assistance Constitutional: Denied any fatigue denied any fever. Cardio vascular: denied any chest pain, palpitations Gastrointestinal denied any nausea vomiting Pulmonary: Denied any shortness of breath cough Neurologic denied any new focal deficits All inpatient medications were reviewed and appropriate changes in these medications as dictated in the interval history and assessment and plan. Objective - Vital Signs Vital signs: Vital Signs Temp 98.6 F 09/24/19 11:32 Pulse 81 09/24/19 11:32 Resp 18 09/24/19 11:32 BP 102/60 09/24/19 11:32 Pulse Ox 99 09/24/19 11:32 Intake & Output 09/23/19 09/24/19 09/24/19 18:59 06:59 18:59 Intake Total 222 240 340 Balance 222 240 340 Weight 80.739 kg 80.1 kg Intake: Oral 222 240 340 Other: Voiding Method Toilet Toilet # Voids 1 0 - Exam PHYSICAL EXAMINATION: GENERAL: The patient is alert and oriented x3, not in any acute distress. Well developed, well nourished. HEENT: Pupils are round and equally reacting to light. EOMI. No scleral icterus. No conjunctival pallor. Normocephalic, atraumatic. No pharyngeal erythema. No thyromegaly. CARDIOVASCULAR: S1 and S2 present. No murmurs, rubs, or gallops. PULMONARY: Chest is clear to auscultation, no wheezing or crackles. ABDOMEN: Soft, nontender, nondistended, normoactive bowel sounds. No palpable organomegaly. MUSCULOSKELETAL: No joint swelling or deformity. EXTREMITIES: No cyanosis, clubbing, or pedal edema. NEUROLOGICAL: Gross neurological examination did not reveal any focal deficits. SKIN: No rashes. - Labs CBC & Chem 7: 09/23/19 04:40 09/23/19 04:40 Labs: Abnormal Lab Results - Last 24 Hours (Table) 09/23/19 09/23/19 09/24/19 Range/Units 04:40 21:06 06:17 POC Glucose (mg/dL) 104 H 115 H (75-99) mg/dL Triglycerides 166 H (<150) mg/dL 09/24/19 Range/Units 12:10 POC Glucose (mg/dL) 104 H (75-99) mg/dL Triglycerides (<150) mg/dL Assessment and Plan Plan: -vertigo: Will need to rule out a several vascular accident involving the cerebellar area. MRI of the brain and it was medications are being discontinued to allow permissive hypertension although her blood pressure is low normal at this time. Patient is on aspirin and a statin MRI will be done tomorrow.echo within normal limits CT angiography head of the head and neck did not show any significant occlusive disease. -type 2 diabetes mellitus Hyperlipidemia
[2019-09-24 17:53] LABS: Glucose,Whole Blood 108 mg/dL (75-99)
--- NOTE | 2019-09-24 19:13 | P.PN ---
Progress Note - Text Progress Note Date: 09/24/19 SUBJECTIVE/INTERVAL EVENTS: No acute overnight events. Patient continues to report residual dizziness and having very cautious gait. MRI not available today due to holiday. Patient with no complaints. No nausea, vomiting, double/blurry vision, weakness, numbness or tingling. Patient endorses mild headache for which patient is requesting some tylenol. PHYSICAL EXAMINATION: VITAL SIGNS: T 98.4 HR 66 RR 16 BP 104/57 O2 sat 98% on RA GEN.: NAD, pleasant and cooperative HEENT: NCAT, sclera without icterus NECK: Supple SKIN AND EXTREMITIES: Warm to touch, no edema NEURO: MENTAL STATUS: Patient alert and oriented to self, place, time. Able to name th e current president. Speech fluent, able to name and repeat, following all commands readily. No right and left disorientation, extinction to double simultaneous stimulation, finger agnosia, neglect. CRANIAL NERVES II THROUGH XII: II: Pupils are equal and reactive to light symmetrically. No afferent pupillary defect. Visual huston are intact. III, IV, : No ptosis. Extraocular movements full. No nystagmus. V: Facial sensation intact from V1-3. VII. No clear facial asymmetry. VIII: Hearing intact to finger rub bilaterally. IX, X: Symmetric palate elevation. XI: Shoulder shrug intact. XII: Tongue midline without fasciculation or atrophy. MOTOR: Normal bulk/tone. No pronator drift or tremor. Strength is 5/5 throughout all 4 extremities. SENSORY: Intact to light touch, temperature, pinprick in all 4 extremities. Romberg is negative. REFLEXES: 2+ throughout. Toes are downgoing. No clonus. Evan's is absent COORDINATION: Finger to nose and heel to chase intact. No dysmetria. Rapid alternating movements with good speed and accuracy. GAIT: Narrow-based and stable. Able to toe/heel/tandem walk HINTS: negative TREVOR-Hallpike: negative DIAGNOSTIC TESTING: LABORATORY: WBC 8.0 hemoglobin 11.4 platelet for 12 sodium 139 potassium 4.0 chloride 108 bicarb 22 BUN 13 creatinine 0.65 glucose 129 AST 20 ALT 27 alk phos 79 Total cholesterol 166 LDL 44 HDL 48 TG 125 TSH 2.290 IMAGING: CT angiography head and neck with and without contrast 09/23/2019: No significant stenosis and common or internal carotid arteries bilaterally. No aneurysmal change at level [place]. Small caliber mid to distal vertebral artery which is not visualized suspect a stenotic. The lumen and posterior cerebral arteries from collateral vessels at level of [place]. Suspect this is a normal variant. TTE 09/23/19: SR. RV, LA, RA, LV sizes are normal. EF 55-60%. Interatrial and interventricular septum intact ASSESSMENT: 64-year-old woman with past medical history of diabetes, hyperlipidemia, hypertension, who presents to [facility] for acute onset dizziness. Patient not specifically endorsing a room-spinning sensation, and her dizziness appears positional, but Trevor-Hallpike negative and patient with multiple risk factors for stroke. CTA of head and neck also showing possible stenotic vertebral artery, which could be the etiology of her dizziness/vertigo/possible stroke. Recommend admission for stroke work-up and management. RECOMMENDATIONS: 1. MRI brain without contrast 2. Carotid Doppler bilateral 3. Cardiac monitoring 4. Holding BP meds for now as her BP has been in the low 100s. 5. ASA 81mg qday and Plavix 75mg qday (dual antiplatelet therapy for 3 weeks per POINT trial, then Aspirin 81mg qday only) 6. Atorvastatin 80mg qhs 7. Labs: A1C 8. PT/OT/ST per protocol 9. Discussed with patient about stroke prevention guidelines. Medication compliance, hypertension/diabetes control, lifestyle changes including no smoking, drinking in moderation, losing weight, exercising, eating healthier 10. Patient needs to follow up with neurologist as outpatient with her 1-2 weeks of discharge 11. Neurology will continue to follow
[2019-09-24 21:04] LABS: Glucose,Whole Blood 84 mg/dL (75-99)
[2019-09-24 23:00] VITALS: RESP 16
[2019-09-25 04:56] VITALS: BP 114/58; PULSE 62; TEMP 98.5
[2019-09-25 06:14] LABS: Glucose,Whole Blood 117 mg/dL (75-99)
[2019-09-25] MEDS: INSULIN ASPART (NovoLOG) 100 UNIT/ML VIAL SQ SCH (06:15)
[2019-09-25] MEDS: metFORMIN 500 MG TAB PO SCH (06:18)
--- NOTE | 2019-09-25 08:50 | MR ---
MR brain without contrast HISTORY: Vertigo, concern for stroke Multiplanar multisequence imaging through the brain Correlation to CT angiogram of the brain 09/23/2019 There is no restricted diffusion. Cortical atrophy is likely age-related. Mild white matter increased intensity on inversion recovery T2-weighted sequences may be related to chronic small vessel ischemi c change. There is no hemorrhage or hydrocephalus. There are normal vascular flow voids. Cerebellopon irma angles, corpus callosum, pituitary, cervical medullary junction are within normal limits. Orbits show symmetric appearance. Paranasal sinuses are well aerated, mastoid air cells are remarkable for some mild inflammatory changes greater on the right than on the left. IMPRESSION: Mild inflammatory change mastoid air cells. Age-related atrophy. Additional findings abov e.
[2019-09-25] MEDS: GLIMEPIRIDE 1 MG TAB PO SCH (09:20)
[2019-09-25] MEDS: ATORVASTATIN 40 MG TAB PO SCH (09:20)
[2019-09-25] MEDS: ASPIRIN 81 MG PO SCH (09:20)
[2019-09-25] MEDS: CLOPIDOGREL 75 MG TAB PO SCH (09:20)
--- NOTE | 2019-09-25 09:54 | P.DS ---
Providers Date of admission: 09/23/19 11:33 Attending physician: Lobo Martins Consults: 09/23/19 07:27 Consult Physician Urgent Consulting Provider: Dorothea Ibrahim Consult Reason/Comments: vertigo Do you want consulting provider notified?: Yes Primary care physician: Lobo Martins Hospital Course: 59-year-old female was admitted the with vertigo and neurology is recommending an MRI of the brain because of the concerns of cerebellar stroke.Patient's vertiginous symptoms improved and patient is more stable today in no weakness on ablation. 09/25/2019 Patient is clinically doing well MRI did not reveal any stroke patient will be discharged on as needed meclizine. Rest of the workup CT angios and echocardiogram within normal limits.patient will not require hydrocortisone that that is being discontinued,. as she is diabetic will continue with lisinopril PHYSICAL EXAMINATION: GENERAL: The patient is alert and oriented x3, not in any acute distress. Well developed, well nourished. HEENT: Pupils are round and equally reacting to light. EOMI. No scleral icterus. No conjunctival pallor. Normocephalic, atraumatic. No pharyngeal erythema. No thyromegaly. CARDIOVASCULAR: S1 and S2 present. No murmurs, rubs, or gallops. PULMONARY: Chest is clear to auscultation, no wheezing or crackles. ABDOMEN: Soft, nontender, nondistended, normoactive bowel sounds. No palpable organomegaly. MUSCULOSKELETAL: No joint swelling or deformity. EXTREMITIES: No cyanosis, clubbing, or pedal edema. NEUROLOGICAL: Gross neurological examination did not reveal any focal deficits. SKIN: No rashes. -vertigo probably peripheral vertigo MRI did not show any cerebral a stroke -Type 2 diabetes mellitus -hyperlipidemia -hypertension Patient Condition at Discharge: Stable Plan - Discharge Summary Discharge Rx Participant: No New Discharge Prescriptions: New Clopidogrel [Plavix] 75 mg PO DAILY #30 tab Meclizine [Antivert] 25 mg PO TID PRN #20 tab PRN Reason: Vertigo Continue Lisinopril [Zestril] 2.5 mg PO QAM metFORMIN HCL 1,000 mg PO BID Glimepiride [Amaryl] 1 mg PO QAM Atorvastatin [Lipitor] 40 mg PO QAM Discontinued Hydrochlorothiazide [Hydrodiuril] 25 mg PO QAM Discharge Medication List Atorvastatin [Lipitor] 40 mg PO QAM 05/12/19 [History] Glimepiride [Amaryl] 1 mg PO QAM 05/12/19 [History] Lisinopril [Zestril] 2.5 mg PO QAM 05/12/19 [History] metFORMIN HCL 1,000 mg PO BID 05/12/19 [History] Clopidogrel [Plavix] 75 mg PO DAILY #30 tab 09/25/19 [Rx] Meclizine [Antivert] 25 mg PO TID PRN #20 tab 09/25/19 [Rx] Follow up Appointment(s)/Referral(s): Lobo Martins MD [Primary Care Provider] - 09/30/19 9:40 am Fan Major MD [Medical Doctor] - 1 Week (Neurologist - please call on Saturday and schedule a follow up appointment. ) Patient Instructions/Handouts: Vertigo (DC), Hypotension (DC) Discharge Disposition: HOME SELF-CARE
[2019-09-25 11:32] LABS: Hemoglobin A1C 7.7 % (4.0-6.0)
--- NOTE | 2019-09-25 14:56 | P.PN ---
Progress Note - Text Progress Note Date: 09/25/19 SUBJECTIVE/INTERVAL EVENTS: Patient had been already discharged prior to my seeing the patient. Called patient today. No acute overnight events. Patient states she's still having dizziness but minimal and much improved. Denies any headache, nausea, vomiting, double/blurry vision, weakness, numbness or tingling. Patient had some headache all day yesterday, but much improved today and not having any. patient has appointment with Dr. Major. PHYSICAL EXAMINATION: VITAL SIGNS: T 98.5 HR 62 RR 16 BP 114/58 O2 sat 95% on RA Previous exam: GEN.: NAD, pleasant and cooperative HEENT: NCAT, sclera without icterus NECK: Supple SKIN AND EXTREMITIES: Warm to touch, no edema NEURO: MENTAL STATUS: Patient alert and oriented to self, place, time. Able to name the current president. Speech fluent, able to name and repeat, following all commands readily. No right and left disorientation, extinction to double simultaneous stimulation, finger agnosia, neglect. CRANIAL NERVES II THROUGH XII: II: Pupils are equal and reactive to light symmetrically. No afferent pupillary defect. Visual huston are intact. III, IV, : No ptosis. Extraocular movements full. No nystagmus. V: Facial sensation intact from V1-3. VII. No clear facial asymmetry. VIII: Hearing intact to finger rub bilaterally. IX, X: Symmetric palate elevation. XI: Shoulder shrug intact. XII: Tongue midline without fasciculation or atrophy. MOTOR: Normal bulk/tone. No pronator drift or tremor. Strength is 5/5 throughout all 4 extremities. SENSORY: Intact to light touch, temperature, pinprick in all 4 extremities. Romberg is negative. REFLEXES: 2+ throughout. Toes are downgoing. No clonus. Evan's is absent COORDINATION: Finger to nose and heel to chase intact. No dysmetria. Rapid alternating movements with good speed and accuracy. GAIT: Narrow-based and stable. Able to toe/heel/tandem walk HINTS: negative TREVOR-Hallpike: negative DIAGNOSTIC TESTING: LABORATORY: WBC 8.0 hemoglobin 11.4 platelet for 12 sodium 139 potassium 4.0 chloride 108 bicarb 22 BUN 13 creatinine 0.65 glucose 129 AST 20 ALT 27 alk phos 79 Total cholesterol 166 LDL 44 HDL 48 TG 125 TSH 2.290 IMAGING: CT angiography head and neck with and without contrast 09/23/2019: No significant stenosis and common or internal carotid arteries bilaterally. No aneurysmal change at level [place]. Small caliber mid to distal vertebral artery which is not visualized suspect a stenotic. The lumen and posterior cerebral arteries from collateral vessels at level of [place] of [place]. Suspect this is a normal variant. TTE 09/23/19: SR. RV, LA, RA, LV sizes are normal. EF 55-60%. Interatrial and interventricular septum intact MRI brain without contrast 09/25/2019: Mild inflammatory change in mastoid air cells. Age-related atrophy. Chronic small vessel ischemic change. ASSESSMENT: 64-year-old woman with past medical history of diabetes, hyperlipidemia, hypertension, who presents to [facility] for acute onset dizziness. Patient not specifically endorsing a room-spinning sensation, and her dizziness appears positional, but Trevor-Hallpike negative and patient with multiple risk factors for stroke. CTA of head and neck also showing possible stenotic vertebral artery, which could be the etiology of her dizziness/vertigo/possible stroke. MRI brain w/o contrat did not show any acute or old stroke. Patient likely had benigh positional peripheral vertigo. RECOMMENDATIONS: 1. BP meds per primary 2. ASA 81mg qday; will discontinue plavix 3. c/w Atorvastatin 40mg qhs (home dosing) 4. Labs: A1C 5. Discussed with patient about stroke prevention guidelines. Medication compliance, hypertension/diabetes control, lifestyle changes including no smoking, drinking in moderation, losing weight, exercising, eating healthier 6. Patient can follow up with PCP only within 1-2 weeks of discharge 7. Neurology will sign off at this time. Please feel free to contact Neurology again if with additional questions or concerns.
== END 2019-09-25 11:11 | disposition home or self-care (01) ==
LOC: EC 04:05 → 1SOBS 07:26 → INTOOBSV 11:33 → OBSVTOIN 11:33 → 3SCARD 14:03 → UNDODISIN 09-25 11:11
PROVIDERS: ADMIT Family Medicine; ATTEND Family Medicine
DX: R42 Dizziness and giddiness (principal); E11.9 Type 2 diabetes mellitus without complications; E78.5 Hyperlipidemia, unspecified; R51 Headache; I10 Essential (primary) hypertension; Z79.84 Long term (current) use of oral hypoglycemic drugs; Z79.899 Other long term (current) drug therapy; Z87.442 Personal history of urinary calculi; Z90.710 Acquired absence of both cervix and uterus; Z87.891 Personal history of nicotine dependence; Z82.49 Family history of ischemic heart disease and other diseases of the circulatory system; Z83.3 Family history of diabetes mellitus; Z98.84 Bariatric surgery status; Z87.440 Personal history of urinary (tract) infections; Z90.722 Acquired absence of ovaries, bilateral; Z90.79 Acquired absence of other genital organ(s); Z82.3 Family history of stroke
CPT/HCPCS: 96361; 96374; 99285; 36415; 93005; 93306; 97162; 97166; 80061; 80053; 84443; 83735; 85025; 83036; 70496; 70498; 70551; G0378 ×4; J3360; Q9967